=== PATIENT | female | born 1975 | race Caucasian/White ===

== ENCOUNTER 2016-05-25 17:15 | Emergency (ER) | payer MEDICAID, OTHER ==
[~2016-05-25] VITALS: Ht 170.2 cm; Wt 92.0 kg
[2016-05-25 17:16] VITALS: BP 130/57; PULSE 77; RESP 16; TEMP 98; O2SAT 98
--- NOTE | 2016-05-25 17:27 | PD ---
Physical Exam Date Seen by Provider: May 25, 2016 Time Seen by Provider: 17:23 Narrative 41 YOWF C/O MEDICAL CLEARANCE FOR DETOX FOR ALCOHOL. NO SI OR HI. NO DRUGS. LMP NOW FOR 3 WEEKS. VSS. PT AWAITING BED PLACEMENT Data Data Last Documented VS Vital Signs Date Time Temp Pulse Resp B/P Pulse Ox O2 Delivery O2 Flow Rate FiO2 05/25/16 17:16 98.0 77 16 130/57 98 Orders Complete Blood Count With Diff (05/25/16 17:41) Comprehensive Metabolic Panel (05/25/16 17:41) Psych Screen (05/25/16 17:41) Drug Screen, Random Urine (05/25/16 17:41) Alcohol (Ethanol) (05/25/16 17:41) Labs Laboratory Tests Test 05/25/16 18:00 White Blood Count 10.7 TH/MM3 Red Blood Count 4.35 MIL/MM3 Hemoglobin 14.9 GM/DL Hematocrit 43.7 % Mean Corpuscular Volume 100.6 FL Mean Corpuscular Hemoglobin 34.2 PG Mean Corpuscular Hemoglobin 34.0 % Concent Red Cell Distribution Width 13.4 % Platelet Count 189 TH/MM3 Mean Platelet Volume 9.3 FL Neutrophils (%) (Auto) 59.9 % Lymphocytes (%) (Auto) 34.0 % Monocytes (%) (Auto) 4.1 % Eosinophils (%) (Auto) 0.8 % Basophils (%) (Auto) 1.2 % Neutrophils # (Auto) 6.4 TH/MM3 Lymphocytes # (Auto) 3.6 TH/MM3 Monocytes # (Auto) 0.4 TH/MM3 Eosinophils # (Auto) 0.1 TH/MM3 Basophils # (Auto) 0.1 TH/MM3 CBC Comment DIFF FINAL Differential Comment Sodium Level 139 MEQ/L Potassium Level 3.4 MEQ/L Chloride Level 104 MEQ/L Carbon Dioxide Level 23.3 MEQ/L Anion Gap 12 MEQ/L Blood Urea Nitrogen 6 MG/DL Creatinine 0.63 MG/DL Estimat Glomerular Filtration 104 ML/MIN Rate Random Glucose 75 MG/DL Calcium Level 8.6 MG/DL Total Bilirubin 0.2 MG/DL Aspartate Amino Transf 37 U/L (AST/SGOT) Alanine Aminotransferase 44 U/L (ALT/SGPT) Alkaline Phosphatase 81 U/L Total Protein 7.0 GM/DL Albumin 3.4 GM/DL Urine Opiates Screen NEG Urine Barbiturates Screen NEG Urine Amphetamines Screen NEG Urine Benzodiazepines Screen NEG Urine Cocaine Screen NEG Urine Cannabinoids Screen NEG Ethyl Alcohol Level 347 MG/DL [facility] Medical Record Reviewed: Yes Supervised Visit with NICHOLE: Yes Diagnosis Primary Impression: Acute alcohol intoxication Qualified Code: F10.120 - Acute alcohol intoxication, uncomplicated Additional Impression: Alcohol abuse Referrals: [facility] Patient Instructions: General Instructions Additional Instruction: FOLLOW UP WITH [facility] 8 AM NO DRIVING RETURN IF ANY PROBLEMS Med/Other Pt SpecificInfo: No Meds Exist/No RX given Disposition: 01 DISCHARGE HOME Condition: Stable Anibal Perez May 25, 2016 17:27
[2016-05-25 18:27] LABS: AUTOMATED NEUTROPHIL # 6.4 TH/MM3 (1.8-7.7); BASOPHIL # 0.1 TH/MM3 (0-0.2); BASOPHIL % 1.2 % (0.0-2.0); EOSINOPHIL # 0.1 TH/MM3 (0-0.4); EOSINOPHIL % 0.8 % (0.0-4.0); HEMATOCRIT 43.7 % (35.0-46.0); HEMO FLAGS DIFF FINAL; LYMPHOCYTE # 3.6 TH/MM3 (1.0-4.8); MEAN CELL VOLUME 100.6 FL (80.0-100.0); MEAN CORPUSCULAR HEMOGLOBIN 34.2 PG (27.0-34.0); MONO % 4.1 % (0.0-8.0); NEUT % 59.9 % (16.0-70.0); PLATELET COUNT 189 TH/MM3 (150-450); RED BLOOD COUNT 4.35 MIL/MM3 (4.00-5.30); RED CELL DISTRIBUTION WIDTH 13.4 % (11.6-17.2); WHITE BLOOD COUNT 10.7 TH/MM3 (4.0-11.0)
--- NOTE | 2016-05-25 18:45 | PD ---
HPI . Alcohol abuse Chief Complaint: Medical Clearance Time Seen by Provider: 17:40 Travel History International Travel<30 days: No Contact w/Intl Traveler<30days: No Traveled to known affect area: No History of Present Illness HPI Patient brought in by her for alcohol abuse. He states that it started a couple years ago. It has gotten progressively worse. She is currently drinking about 1.5 pints of vodka per day. reports that she's had some falls related to her alcohol abuse. She has not had any problems with cirrhosis or GI bleeding that he is aware of. He states that they present today for this because the family had a family meeting and decided that it was time for her to get some help. The patient is voluntary. She does agree that she needs some assistance with alcohol abuse. Both the patient and the deny any other substance abuse. She denies any suicidal ideation. PFSH Past Medical History Anxiety: Yes Depression: Yes Diabetes: Yes Patient Takes Glucophage: No Hypertension: Yes ?: Not LMP: 05/09/16 Past Surgical History Abdominal Surgery: Yes (gastric bypass) Social History Alcohol Use: Yes (1 1/2 pint daily) Tobacco Use: Yes (1ppd) Substance Use: No Allergies-Medications (Allergen,Severity, Reaction): Coded Allergies: No Known Allergies (Verified , 05/25/16) Review of Systems Except as stated in HPI: all other systems reviewed are Neg Gastrointestinal: No: Nausea, Vomiting, Abdominal Pain Psychiatric: Positive: Substance Abuse, No: Suicidal Ideations, Homicidal Ideation Physical Exam Narrative GENERAL: Awake and alert and in no acute distress. Speech is slightly slurred. SKIN: Warm and dry. CARDIOVASCULAR: Regular rate and rhythm. RESPIRATORY: No accessory muscle use. MUSCULOSKELETAL: No obvious deformities. No edema. NEUROLOGICAL: Awake and alert. No obvious cranial nerve deficits. Motor grossly within normal limits. Normal speech. Gait is a little ataxic. PSYCHIATRIC: Appropriate mood and affect; insight and judgment poor. Data Data Last Documented VS Vital Signs Date Time Temp Pulse Resp B/P Pulse Ox O2 Delivery O2 Flow Rate FiO2 05/25/16 17:16 98.0 77 16 130/57 98 Orders Complete Blood Count With Diff (05/25/16 17:41) Comprehensive Metabolic Panel (05/25/16 17:41) Psych Screen (05/25/16 17:41) Drug Screen, Random Urine (05/25/16 17:41) Alcohol (Ethanol) (05/25/16 17:41) Labs Laboratory Tests Test 05/25/16 18:00 White Blood Count 10.7 TH/MM3 Red Blood Count 4.35 MIL/MM3 Hemoglobin 14.9 GM/DL Hematocrit 43.7 % Mean Corpuscular Volume 100.6 FL Mean Corpuscular Hemoglobin 34.2 PG Mean Corpuscular Hemoglobin 34.0 % Concent Red Cell Distribution Width 13.4 % Platelet Count 189 TH/MM3 Mean Platelet Volume 9.3 FL Neutrophils (%) (Auto) 59.9 % Lymphocytes (%) (Auto) 34.0 % Monocytes (%) (Auto) 4.1 % Eosinophils (%) (Auto) 0.8 % Basophils (%) (Auto) 1.2 % Neutrophils # (Auto) 6.4 TH/MM3 Lymphocytes # (Auto) 3.6 TH/MM3 Monocytes # (Auto) 0.4 TH/MM3 Eosinophils # (Auto) 0.1 TH/MM3 Basophils # (Auto) 0.1 TH/MM3 CBC Comment DIFF FINAL Differential Comment Sodium Level 139 MEQ/L Potassium Level 3.4 MEQ/L Chloride Level 104 MEQ/L Carbon Dioxide Level 23.3 MEQ/L Anion Gap 12 MEQ/L Blood Urea Nitrogen 6 MG/DL Creatinine 0.63 MG/DL Estimat Glomerular Filtration 104 ML/MIN Rate Random Glucose 75 MG/DL Calcium Level 8.6 MG/DL Total Bilirubin 0.2 MG/DL Aspartate Amino Transf 37 U/L (AST/SGOT) Alanine Aminotransferase 44 U/L (ALT/SGPT) Alkaline Phosphatase 81 U/L Total Protein 7.0 GM/DL Albumin 3.4 GM/DL Urine Opiates Screen NEG Urine Barbiturates Screen NEG Urine Amphetamines Screen NEG Urine Benzodiazepines Screen NEG Urine Cocaine Screen NEG Urine Cannabinoids Screen NEG Ethyl Alcohol Level 347 MG/DL [facility] Medical Decision Making Medical Screen Exam Complete: Yes Emergency Medical Condition: Yes Differential Diagnosis My differential diagnosis of substance abuse includes but is not limited to simple abuse, complication of substance abuse, underlying psychiatric issue Narrative Course Patient presents for evaluation of alcohol abuse. CBC & BMP Diagram 05/25/16 18:00 LFTs are normal. Alcohol level is 347. Drug screen is negative. This patient is medically clear for psychiatric evaluation. Diagnosis Primary Impression: Alcohol abuse Additional Impression: Acute alcohol intoxication Qualified Code: F10.120 - Acute alcohol intoxication, uncomplicated Condition: Stable Michelle Smith MD May 25, 2016 18:45
[2016-05-25 18:48] LABS: ANION GAP 12 MEQ/L (5-15)
[2016-05-25 18:50] LABS: AMPHETAMINE, URINE NEG (NEG); BARBITURATES, URINE NEG (NEG); COCAINE, URINE NEG (NEG)
[2016-05-25 18:53] LABS: ALKALINE PHOSPHATASE 81 U/L (45-117); ALT (GPT) 44 U/L (10-53); AST (GOT) 37 U/L (15-37); BICARBONATE 23.3 MEQ/L (21.0-32.0); BLOOD UREA NITROGEN 6 MG/DL (7-18); CHLORIDE 104 MEQ/L (98-107); GLOMERULAR FILTRATION RATE 104 ML/MIN (>89); POTASSIUM 3.4 MEQ/L (3.5-5.1); SODIUM (NA) 139 MEQ/L (136-145); TOTAL BILIRUBIN ADULT 0.2 MG/DL (0.2-1.0)
[2016-05-25 22:54] VITALS: BP 127/55; PULSE 78; RESP 16; O2SAT 95
== END 2016-05-25 23:08 | disposition home or self-care (01) ==
LOC: NEPD 17:15
DX: F10.129 Alcohol abuse with intoxication, unspecified (principal); E11.9 Type 2 diabetes mellitus without complications; I10 Essential (primary) hypertension; F32.9 Major depressive disorder, single episode, unspecified; F41.9 Anxiety disorder, unspecified; F19.10 Other psychoactive substance abuse, uncomplicated; F17.200 Nicotine dependence, unspecified, uncomplicated
CPT/HCPCS: 80053; 80307; 85025; 99283

== ENCOUNTER 2017-08-10 00:54 | Emergency (ER) | payer MEDICAID, OTHER ==
[~2017-08-10] VITALS: Ht 170.2 cm; Wt 85.0 kg
[2017-08-10 01:08] VITALS: BP 126/57; PULSE 82; RESP 12; TEMP 98.6; O2SAT 98
--- NOTE | 2017-08-10 01:52 | PD ---
HPI Chief Complaint: Suicide Ideation/Attempt Time Seen by Provider: 01:22 Travel History International Travel<30 days: No Contact w/Intl Traveler<30days: No Traveled to known affect area: No History of Present Illness HPI 42-year-old white female presents emergency department under Walter act by PD. Patient had performed suicide gesture cutting to her right wrist. The patient had been drinking this evening. She had gotten into an argument with her . She also was on the phone talking to her mother. She states that she does not have a very good relationship with her. She lives in [place]. After the discussion she had performed self mutilative cutting. She states that she feels depressed and has suicidal thoughts. She denies any toxic ingestions. No homicidal ideation. She denies any medical complaints. She is up-to-date with immunizations. This is exacerbated by arguments with the and her mother. No alleviating factors. She is currently being treated for depression PFSH Past Medical History Narrative Medical Anxiety, depression, obesity, hypertension Hx Anticoagulant Therapy: No Anxiety: Yes Depression: Yes Cardiovascular Problems: No Chemotherapy: No Cerebrovascular Accident: No Diabetes: No Hypertension: Yes Respiratory: No Tetanus Vaccination: < 5 Years ?: Not LMP: 07/2017 Past Surgical History Narrative Surgical Tubal ligation, Judi-en-Y gastric bypass Abdominal Surgery: Yes (gastric bypass) Hysterectomy: No Social History Alcohol Use: Yes (1 1/2 pint daily) Tobacco Use: Yes (1ppd) Substance Use: No Allergies-Medications (Allergen,Severity, Reaction): Coded Allergies: No Known Allergies (Verified , 05/25/16) Review of Systems General / Constitutional: No: Fever Eyes: No: Visual changes HENT: No: Headaches Cardiovascular: No: Chest Pain or Discomfort Respiratory: No: Shortness of Breath Gastrointestinal: No: Abdominal Pain Genitourinary: No: Dysuria Musculoskeletal: Positive: Pain Skin: No Rash Neurologic: No: Weakness Psychiatric: Positive: Depression, Suicidal Ideations, Mood Disorder, No: Anxiety, Disorder of Thought, Substance Abuse, Homicidal Ideation Endocrine: No: Polydipsia Hematologic/Lymphatic: No: Easy Bruising Physical Exam Narrative GENERAL: Well-nourished, well-developed patient. SKIN: Warm and dry. Patient has a 1.5 cm laceration to the volar right wrist. This is just into the subcutaneous tissues. No deep structure injury. No neurovascular injury. HEAD: Normocephalic and atraumatic. EYES: No scleral icterus. No injection or drainage. ENT: No nasal drainage noted. Mucous membranes pink. Airway patent. NECK: Supple, trachea midline. Moves head freely without obvious discomfort. CARDIOVASCULAR: Regular rate and rhythm without murmurs, gallops, or rubs. RESPIRATORY: Breath sounds equal bilaterally. No accessory muscle use. GASTROINTESTINAL: Abdomen soft, non-tender, nondistended. EXTREMITIES: No cyanosis or edema. BACK: Nontender without obvious deformity. No CVA tenderness. NEURO: Patient is alert and oriented. no sensorimotor deficits. Nonfocal. Normal speech. PSYCH: No delusions. No auditory or visual hallucinations. Data Data Last Documented VS Vital Signs Date Time Temp Pulse Resp B/P (MAP) Pulse Ox O2 Delivery O2 Flow Rate FiO2 08/10/17 01:08 98.6 82 12 126/57 (80) 98 Orders Orders Complete Blood Count With Diff (08/10/17 01:22) Comprehensive Metabolic Panel (08/10/17 01:22) Thyroid Stimulating Hormone (08/10/17 01:22) Ed Urine Pregnancytest Poc (08/10/17 01:22) Psych Screen (08/10/17 01:22) Drug Screen, Random Urine (08/10/17 01:22) Alcohol (Ethanol) (08/10/17 01:22) Salicylates (Aspirin) (08/10/17 01:22) Tylenol (Acetaminophen) (08/10/17 01:22) Labs Laboratory Tests Test 08/10/17 01:34 [facility] Medical Decision Making Medical Screen Exam Complete: Yes Emergency Medical Condition: Yes Medical Record Reviewed: Yes Differential Diagnosis MDM: High Differential diagnoses: Schizophrenia, schizoaffective disorder, bipolar, anxiety, depression, adjustment reaction, mood disorder NOS, ODD, depressive disorder NOS, dementia, dementia with agitation, psychosis NOS, substance induced mood disorder, DMDD, Asperger syndrome, infection,electrolyte abnormality, malingering. Narrative Course Mental health screening discussed with the patient. Psychiatric screen ordered. The patient is medically cleared. This is medical clearance for psychiatric admission, suicide gesture cutting Diagnosis Primary Impression: Medical clearance for psychiatric admission Additional Impression: Suicide gesture cutting Condition: Stable Anibal Perez Aug 10, 2017 01:52
[2017-08-10 01:53] LABS: AUTOMATED NEUTROPHIL # 4.3 TH/MM3 (1.8-7.7); BASOPHIL # 0.1 TH/MM3 (0-0.2); BASOPHIL % 0.9 % (0.0-2.0); EOSINOPHIL # 0.2 TH/MM3 (0-0.4); EOSINOPHIL % 2.5 % (0.0-4.0); HEMATOCRIT 42.9 % (35.0-46.0); HEMOGLOBIN 14.7 GM/DL (11.6-15.3); LYMPH % 42.6 % (9.0-44.0); LYMPHOCYTE # 3.7 TH/MM3 (1.0-4.8); MEAN CELL VOLUME 99.4 FL (80.0-100.0); MEAN CORPUSCULAR HGB CONC 34.2 % (32.0-36.0); MEAN PLATELET VOLUME 8.8 FL (7.0-11.0); MONO % 4.8 % (0.0-8.0); MONOCYTE # 0.4 TH/MM3 (0-0.9); NEUT % 49.2 % (16.0-70.0); PLATELET COUNT 232 TH/MM3 (150-450); RED BLOOD COUNT 4.31 MIL/MM3 (4.00-5.30); RED CELL DISTRIBUTION WIDTH 14.1 % (11.6-17.2); WHITE BLOOD COUNT 8.7 TH/MM3 (4.0-11.0)
[2017-08-10 02:03] LABS: ALBUMIN 3.8 GM/DL (3.4-5.0); ALT (GPT) 28 U/L (10-53); AST (GOT) 26 U/L (15-37); BICARBONATE 25.2 MEQ/L (21.0-32.0); BLOOD UREA NITROGEN 6 MG/DL (7-18); CALCIUM 8.3 MG/DL (8.5-10.1); CHLORIDE 109 MEQ/L (98-107); CREATININE 0.71 MG/DL (0.50-1.00); GLOMERULAR FILTRATION RATE 90 ML/MIN (>89); GLUCOSE,RANDOM 82 MG/DL (74-106); SODIUM (NA) 142 MEQ/L (136-145)
[2017-08-10 02:13] LABS: ALKALINE PHOSPHATASE 90 U/L (45-117); TOTAL BILIRUBIN ADULT 0.2 MG/DL (0.2-1.0); TOTAL PROTEIN 7.6 GM/DL (6.4-8.2)
[2017-08-10 02:20] LABS: ACETAMINOPHEN LESS THAN 2.0 MCG/ML (10.0-30.0)
[2017-08-10 06:14] VITALS: BP 129/62; PULSE 78; RESP 16; TEMP 98.6; O2SAT 100
[2017-08-10 17:30] VITALS: BP 159/79; PULSE 108; RESP 18; O2SAT 99
[2017-08-10] MEDS ORDERED: FLUMAZENIL 0.5 MG/5 ML VIAL IV PUSH PRN (19:30)
[2017-08-10] MEDS ORDERED: LORazepam 2 MG/ML VIAL IV PUSH PRN ×4 (19:30)
[2017-08-10] MEDS ORDERED: LORazepam 2 MG TAB PO PRN (19:30)
[2017-08-10] MEDS: LORazepam 1 MG TAB PO PRN (19:58)
[2017-08-10] MEDS ORDERED: ACETAMINOPHEN 325 MG TAB PO ONE (21:00)
[2017-08-10 22:25] VITALS: BP 126/74; PULSE 73; RESP 16; O2SAT 99
[2017-08-10] MEDS ORDERED: diphenhydrAMINE HCL 50 MG CAP PO ONE (22:30)
[2017-08-11 06:24] VITALS: BP 155/68; PULSE 62; RESP 16; O2SAT 100
--- NOTE | 2017-08-11 07:49 | PD ---
History of Present Illness Chief Complaint: Suicide Ideation/Attempt Time Seen by Provider: 07:40 Travel History International Travel<30 Days: No Contact w/Intl Traveler<30days: No Known affected area: No Legal Status Legal Status: Walter Act Walter Act Signed By: Damon Pratt Walter Act Comment: 2017 @ [id number] History of Present Illness: History of Present Illness HPI 42-year-old white, , female with reported history of depression, alcohol use disorder who presents emergency department under Walter act by PD. The Walter act report alleges that she cut herself using a serrated folding knife. She reported to the police that she has been having marital problems. Patient was intoxicated at the time that she cut her wrist. Her blood alcohol level on arrival was 179. EMR reviewed. Patient was evaluated in May 2016 for alcohol intoxication. She was monitored in [facility] and presented no behavioral concerns and no suicidality. Patient is seen. She is clinically sober. Alert, oriented, appropriate eye contact and variable affect. Speech is clear and logical. No evidence of any psychosis or patti. Patient denies any suicidal or homicidal ideation, intent or plan. She states that she was involved in an argument with her and then decided to have a bottle of wine. She admits that" it was a stupid thing to do." She denies that she had any plan of harming herself prior to consuming the alcohol. Patient denies any previous history of self-injurious behavior. PFSH Past Medical History Hx Anticoagulant Therapy: No Anxiety: Yes Depression: Yes Cardiovascular Problems: No Chemotherapy: No Cerebrovascular Accident: No Diabetes: No Hypertension: Yes Respiratory: No Tetanus Vaccination: < 5 Years ?: Not LMP: 07/2017 Past Surgical History Abdominal Surgery: Yes (gastric bypass) Hysterectomy: No Psychiatric History Psychiatric History Hx Psychiatric Treatment: History of depression. Has been seeing Dr. Bejarano for 4 years on an outpatient basis. Has an appointment first week of next month. She reports medication compliance. History of Inpatient Treatment: No Guns or firearms in home: No Social History Patient is from [place]. . Lives with her . Unemployed Hx Alcohol Use: Yes (1 1/2 pint daily) Hx Tobacco Use: Yes (1ppd) Hx Substance Use: No Substance Use Type: Alcohol (Denies that she drinks on a daily basis.) Hx of Substance Use Treatment: No Family Psychiatric History Negative Allergies-Medications (Allergen,Severity, Reaction): Coded Allergies: No Known Allergies (Verified , 05/25/16) Review of Systems Psychiatric: DENIES: Anxiety, Confusion, Mood changes, Depression, Hallucinations, Agitation, Suicidal Ideation, Homicidal Ideation, Delusions Except as stated in HPI: all other systems reviewed are Neg Mental Status Examination Appearance: Disheveled Consciousness: Alert Orientation: x4 Motor Activity: Normal gait, Other Speech: Unremarkable Language: Adequate Fund of Knowledge: Adequate Attention and Concentration: Adequate Memory: Unremarkable Mood: Appropriate Affect: Appropriate Thought Process & Associations: Intact, Logical, Goal directed Thought Content: Appropriate Hallucination Type: None Delusion Type: None Suicidal Ideation: No Suicidal Plan: No Suicidal Intention: No Homicidal Ideation: No Homicidal Plan: No Homicidal Intention: No Insight: Adequate Judgment: Impulsive MDM Medical Decision Making Medical Record Reviewed: Yes Assessment/Plan History of Present Illness HPI 42-year-old white, , female with reported history of depression, alcohol use disorder who presents emergency department under Walter act by PD. The Walter act report alleges that she cut herself using a serrated folding knife. She reported to the police that she has been having marital problems. Patient was intoxicated at the time that she cut her wrist. Her blood alcohol level on arrival was 179. Patient is observed until she is clinically sober and once clinically sober she denies any suicidal or homicidal ideation, intent or plan. She is future oriented with adequate protective factors and states" I have a 23-year-old marriage as well as 3 kids so I would not harm myself." She is provided psychoeducation. Abstinence is recommended. The patient does not present any evidence of unstable mental illness and therefore the Walter act will be lifted. She will follow up with her outpatient psychiatrist. Psychiatrically clear for discharge from the ED Orders Orders Diet Regular Basic (08/10/17 Lunch) Alcohol Withdrawal Asmt-Ciwa ONCE (08/10/17 19:27) Flumazenil Inj (Romazicon Inj) (08/10/17 19:30) Lorazepam (Ativan) (08/10/17 19:30) Lorazepam Inj (Ativan Inj) (08/10/17 19:30) Lorazepam (Ativan) (08/10/17 19:30) Lorazepam Inj (Ativan Inj) (08/10/17 19:30) Lorazepam Inj (Ativan Inj) (08/10/17 19:30) Lorazepam Inj (Ativan Inj) (08/10/17 19:30) Acetaminophen (Tylenol) (08/10/17 21:00) Diphenhydramine (Benadryl) (08/10/17 22:30) Diet Regular Basic (08/11/17 Breakfast) Results Vital Signs Date Time Temp Pulse Resp B/P (MAP) Pulse Ox O2 Delivery O2 Flow Rate FiO2 08/11/17 06:24 62 16 155/68 (97) 100 Room Air 08/10/17 22:25 73 16 126/74 (91) 99 Room Air 08/10/17 17:30 108 18 159/79 (105) 99 Room Air Diagnosis Primary Impression: Acute alcohol intoxication Additional Impression: Alcohol abuse Psychiatrically Cleared: Yes Med/ Other Pt Specific Info: No Change to Meds Disposition: 01 DISCHARGE HOME Condition: Stable Problem Qualifiers Primary Impression: Acute alcohol intoxication Qualified Codes: F10.929 - Alcohol use, unspecified with intoxication, unspecified Guillermina Demarco Aug 11, 2017 07:49
[2017-08-11] MEDS: LORazepam 1 MG TAB PO PRN (08:09)
--- NOTE | 2017-08-11 09:46 | PD ---
Physical Exam Date Seen by Provider: Aug 11, 2017 Time Seen by Provider: 09:44 Data Data Last Documented VS Vital Signs Date Time Temp Pulse Resp B/P (MAP) Pulse Ox O2 Delivery O2 Flow Rate FiO2 08/11/17 09:34 08/11/17 06:24 62 16 100 Room Air 08/10/17 06:14 98.6 Orders Orders Complete Blood Count With Diff (08/10/17 01:22) Comprehensive Metabolic Panel (08/10/17 01:22) Thyroid Stimulating Hormone (08/10/17 01:22) Ed Urine Pregnancytest Poc (08/10/17 01:22) Psych Screen (08/10/17 01:22) Drug Screen, Random Urine (08/10/17 01:22) Alcohol (Ethanol) (08/10/17 01:22) Salicylates (Aspirin) (08/10/17 01:22) Tylenol (Acetaminophen) (08/10/17 01:22) Diet Regular Basic (08/10/17 Breakfast) Diet Regular Basic (08/10/17 Lunch) Alcohol Withdrawal Asmt-Ciwa ONCE (08/10/17 19:27) Flumazenil Inj (Romazicon Inj) (08/10/17 19:30) Lorazepam (Ativan) (08/10/17 19:30) Lorazepam Inj (Ativan Inj) (08/10/17 19:30) Lorazepam (Ativan) (08/10/17 19:30) Lorazepam Inj (Ativan Inj) (08/10/17 19:30) Lorazepam Inj (Ativan Inj) (08/10/17 19:30) Lorazepam Inj (Ativan Inj) (08/10/17 19:30) Acetaminophen (Tylenol) (08/10/17 21:00) Diphenhydramine (Benadryl) (08/10/17 22:30) Diet Regular Basic (08/11/17 Breakfast) Labs Laboratory Tests Test 08/10/17 01:34 White Blood Count 8.7 TH/MM3 Red Blood Count 4.31 MIL/MM3 Hemoglobin 14.7 GM/DL Hematocrit 42.9 % Mean Corpuscular Volume 99.4 FL Mean Corpuscular Hemoglobin 34.0 PG Mean Corpuscular Hemoglobin Concent 34.2 % Red Cell Distribution Width 14.1 % Platelet Count 232 TH/MM3 Mean Platelet Volume 8.8 FL Neutrophils (%) (Auto) 49.2 % Lymphocytes (%) (Auto) 42.6 % Monocytes (%) (Auto) 4.8 % Eosinophils (%) (Auto) 2.5 % Basophils (%) (Auto) 0.9 % Neutrophils # (Auto) 4.3 TH/MM3 Lymphocytes # (Auto) 3.7 TH/MM3 Monocytes # (Auto) 0.4 TH/MM3 Eosinophils # (Auto) 0.2 TH/MM3 Basophils # (Auto) 0.1 TH/MM3 CBC Comment DIFF FINAL Differential Comment Blood Urea Nitrogen 6 MG/DL Creatinine 0.71 MG/DL Random Glucose 82 MG/DL Total Protein 7.6 GM/DL Albumin 3.8 GM/DL Calcium Level 8.3 MG/DL Alkaline Phosphatase 90 U/L Aspartate Amino Transf (AST/SGOT) 26 U/L Alanine Aminotransferase (ALT/SGPT) 28 U/L Total Bilirubin 0.2 MG/DL Sodium Level 142 MEQ/L Potassium Level 4.2 MEQ/L Chloride Level 109 MEQ/L Carbon Dioxide Level 25.2 MEQ/L Anion Gap 8 MEQ/L Estimat Glomerular Filtration Rate 90 ML/MIN Thyroid Stimulating Hormone 3rd Gen 2.970 uIU/ML Salicylates Level 4.8 MG/DL Urine Opiates Screen NEG Acetaminophen Level LESS THAN 2.0 MCG/ML Urine Barbiturates Screen NEG Urine Amphetamines Screen NEG Urine Benzodiazepines Screen NEG Urine Cocaine Screen NEG Urine Cannabinoids Screen NEG Ethyl Alcohol Level 179 MG/DL [facility] Supervised Visit with NICHOLE: No Narrative Course 42-year-old female presented to the ED under Walter act for psychiatric evaluation. She was evaluated by Tano Beckford PA-C and medically cleared. She was then evaluated by Guillermina Demarco, associate director finance, Walter act was lifted. Patient's diagnosed with acute alcohol intoxication, alcohol induced mood disorder. Plan is for the patient to follow-up with outpatient psychiatric resources. She is stable and discharged home. Diagnosis Primary Impression: Medical clearance for psychiatric admission Additional Impressions: Acute alcohol intoxication Qualified Codes: F10.929 - Alcohol use, unspecified with intoxication, unspecified Suicide gesture cutting Referrals: Psychiatrist Patient Instructions: General Instructions, At-Risk Alcohol Use (ED) Departure Forms: Tests/Procedures Additional Instruction: Please Call Dr eng/your psychiatrist for a follow up appointment Disposition: 01 DISCHARGE HOME Condition: Stable Melanie Fletcher Aug 11, 2017 09:46
== END 2017-08-11 10:55 | disposition home or self-care (01) ==
LOC: NEPJ 00:54
DX: F10.129 Alcohol abuse with intoxication, unspecified (principal); F32.9 Major depressive disorder, single episode, unspecified; F17.200 Nicotine dependence, unspecified, uncomplicated; S61.511A Laceration without foreign body of right wrist, initial encounter; X78.1XXA Intentional self-harm by knife, initial encounter; Y90.6 Blood alcohol level of 120-199 mg/100 ml
CPT/HCPCS: 80053; 80307; 84443; 84703; 85025; 99283; Q0163